=== PATIENT | male | born 1950 | race Caucasian/White ===

== ENCOUNTER 2016-09-13 14:40 | Emergency (ER) | payer OTHER ==
[~2016-09-13] VITALS: Ht 182.9 cm; Wt 81.6 kg
--- NOTE | 2016-09-13 15:14 | ED GENERAL ADULT ---
History of Present Illness General Chief Complaint: General Adult Stated Complaint: JAW PAIN Source: patient, old records Exam Limitations: no limitations Vital Signs & Intake/Output Vital Signs & Intake/Output Vital Signs Date Time Temp Pulse Resp B/P Pulse O2 O2 Flow FiO2 Ox Delivery Rate 09/13 1735 77 176/94 09/13 1642 99.1 87 18 183/90 97 Room Air 09/13 1548 Room Air 09/13 1443 97.7 95 20 190/100 98 Room Air Allergies Coded Allergies: No Known Allergies (09/13/16) Triage Note: PT TO ED C/O HEARTBURN AND JAW PAIN X 1 WEEK. PT WENT TO SEE DR IBRAHIM FOR THE SAME, AND WAS TOLD TO COME TO ED FOR FURTHER EVAL. PT DENIES CHEST PAIN, SOB. DENIES HEARTBURN NOW. DENIES ANY PAIN. Triage Nurses Notes Reviewed? yes Onset: Abrupt Duration: week(s): (1.5), intermittent, resolved prior to arrival Timing: recent history Injury Environment: home Severity: mild Severity Numbers: 3 No Modifying Factors: none Associated Symptoms: denies HPI: 66-year-old male with history of hypertension and high cholesterol sarcoidosis presents emergency room after being sent in by his primary care physician stating that over the past 1-1/2 weeks he's had "heartburn and bilateral jaw sensitivity". Patient states that he's had a history of reflux in the past and states that he has had similar symptoms including the jaw sensitivity. The symptoms have come on intermittently randomly lasting anywhere from a few seconds to a few minutes. He is been taking Prilosec over the past 1 week with only mild improvement. He denies any symptoms at this time and states the last episode was approximate 3 days ago. He states he is very active playing tennis and working out and states that he did 45 minutes of interval training today. He denies any associated chest pain palpitations dizziness lightheadedness shortness of breath. The symptoms have not occurred while he was exerting himself working out. He does not smoke he denies alcohol use. He is never been seen by anatomy and physiology instructor before however he has had endoscopies and colonoscopies before. He denies alcohol use abdominal pain nausea vomiting diarrhea. There are no modifying factors or associated symptoms patient denies any symptoms at this time. He denies any arm or hand tingling numbness or weakness. The patient states that it is not pain in his jaw that it is a "sensitivity" but does not yet worse with opening and closing his jaw no dental pain. (JAMIE BLANCAS) Reconcile Medications Aspirin (Ecotrin*) 81 MG TABLET. 1 TAB PO DAILY HEART/BLOOD (Reported) Simvastatin (Simvastatin*) 20 MG TABLET 1 TAB PO QAM CHOLESTEROL (Reported) Valsartan 160 MG TABLET 1 TAB PO QAM HTN (Reported) (MYA LOZANO DO) Past History Travel History Traveled to [place] past 21 day No Medical History Any Pertinent Medical History? see below for history Cardiovascular: hypertension, hyperlipidemia Respiratory: sarcoidosis Gastrointestinal: GERD Surgical History Surgical History: none Psychosocial History What is your primary language Kyrgyz Tobacco Use: Never used ETOH Use: occasional use Illicit Drug Use: denies illicit drug use Family History Hx Contributory? No (JAMIE BLANCAS) Review of Systems Review of Systems Constitutional: Reports: see HPI. All Other Systems: Reviewed and Negative Comments Review of systems: See HPI, All other systems negative. Constitutional, no chills no fever, no malaise HEENT: no sore throat no congestion, no ear pain Cardiovascular: No chest pain , no palpitation , Skin, no jaundice no rashes, no change in skin Respiratory: No dyspnea no cough no sputum no hemoptysis GI: No nausea no vomiting, no diarrhea, no bloating/constipation : No dysuria No hematuria, no frequency, no discharge Muscle skeletal: No joint pain, no joint swelling, no back pain, no neck pain, Neurologic: no headache Psych: stress no anxiety no depression,. Heme/endocrine: No bruising no bleeding Immunology: No lymphadenopathy (JAMIE BLANCAS) Physical Exam Physical Exam General Appearance: well developed/nourished, no apparent distress, alert, awake , comfortable Comments: Well-developed well-nourished person in no acute distress HEENT: Normal EENT exam; PERRL, EOMI, HEAD is atraumatic. moist mucous membranes. face and tmj b/l nontender, no facial swelling Neck: Supple, no bruit, no lymphadenoapthy normal range of motion Back: Nontender, no CVA tenderness. Full range of motion Cardiovascular: Regular rate and rhythms no murmurs rubs Respiratory: Chest nontender.There were no bony deformities, no asymmetry. No respiratory distress. Patient speaking in full complete sentences. Breath sounds clear to auscultation bilaterally: NO W/R/R Abdomen: Soft, nontender nondistended, no appreciable organomegaly. Normal bowel sounds. No rebound/guarding, Extremity: No edema, full range of motion of extremities Neuro: Alert oriented x3, motor sensory normal,There were no obvious focal neurologic abnormalities. Skin: No appreciable rash on exposed skin, skin is warm and dry. Psych: Mood and affect is normal, memory and judgment is normal. Core Measures ACS in differential dx? Yes CVA/TIA Diagnosis: No Severe Sepsis Present: No Septic Shock Present: No (FANNY LUNA,JAMIE) Progress Differential Diagnoses I considered the following diagnoses in my evaluation of the patient: Muscle strain anxiety, reflux, gastritis, ami pericarditis pancreatitis pulmonary embolism pneumonia sarcoid pneumothorax, tmj Plan of Care: Orders Procedure Date/time Status TROPONIN LEVEL 09/13 1527 Complete LIPASE 09/13 1527 Complete COMPREHENSIVE METABOLIC PANEL 09/13 1527 Complete CBC WITHOUT DIFFERENTIAL 09/13 1527 Complete AMYLASE 09/13 1527 Complete EKG 09/13 1527 Active Laboratory Tests 09/13/16 1605: Anion Gap 11, Estimated GFR > 60, BUN/Creatinine Ratio 26.3 H, Glucose 87, Calcium 9.7, Total Bilirubin 1.6 H, AST 46, ALT 64, Alkaline Phosphatase 78, Troponin I 0.01, Total Protein 7.9, Albumin 4.5, Globulin 3.4, Albumin/Globulin Ratio 1.3, Amylase 52, Lipase 91, CBC w Diff NO MAN DIFF REQ, RBC 4.67 L, MCV 93.8, MCH 32.4 H, RDW 12.6, MPV 7.5, Gran % 62.2, Lymphocytes % 20.9, Monocytes % 16.0 H, Eosinophils % 0.3, Basophils % 0.6, Absolute Granulocytes 3.1, Absolute Lymphocytes 1.0 L, Absolute Monocytes 0.8 H, Absolute Eosinophils 0, Absolute Basophils 0, PUBS MCHC 34.6 Labs ordered old records reviewed patient denies any symptoms at this time, evaluated by Dr. lozano who agrees with plan 09/13/2016 5:34:24 PM discussed the patient and his all his lab results. The patient's last episode of these symptoms occurred 3 or 4 days ago per the patient. He's been asymptomatic here. I discussed with him at length all of his lab results given the duration of his symptoms I discussed with him that I do not believe at this time he would require a repeat troponin which she patient is agreement with. I discussed with him at length all of his lab results. The patient states that his blood pressure is chronically elevated when he goes to the doctor's office and that both his and daughter who are in the medical field 1 as a nurse one is a physician dental assistant have checked his blood pressures at home and that they've been 120s systolic in the past. He denies headache vision changes chest pain. I discussed the need for close follow-up with George Ibrahim MD however information was also provided for follow-up with Dr. Nelson as well as his gastrologist Dr. Cassidy. I answered all his questions he feels comfortable with plan cleared for discharge (JAMIE BLANCAS) Initial ED EKG: nsr at 70, nonspecific st seg changes, normal axis Prior EKG: unchanged (09/2010) (JAMIE BLANCAS) Differential Diagnoses I considered the following diagnoses in my evaluation of the patient: (BLAKE DO,MYA Kovacs) Departure Departure Time of Disposition: 1731 Disposition: HOME OR SELF CARE Condition: Stable Clinical Impression Primary Impression: Jaw pain Secondary Impressions: HTN (hypertension) Referrals: ALEXANDRIA RINCON,MAYELIN (PCP/Family) JHON RINCON,Ian CASSIDY MD,SUHAIL Avila Additional Instructions: Follow-up with anatomy and physiology instructor Dr. Nelson as well as your baler operator Dr. Cassidy and your primary care physician this week bland diet no fatty spicy greasy foods. Continue to check your blood pressures at home, as discussed your blood pressure was elevated today here in the emergency room. Return if these values are persistently elevated at home. Otherwise follow-up with your primary care physician as you may need adjustment in your medication Return to emergency room at anytime sooner if your symptoms become more persistent, constant or you have any other concerns Departure Forms: Customer Survey General Discharge Information (JAMIE BLANCAS) PA/SPEAR FISHER Co-Sign Statement Statement: ED Attending supervision documentation- [X] I saw and evaluated the patient. I have also reviewed all the pertinent lab results and diagnostic results. I agree with the findings and the plan of care as documented in the PA's/SPEAR FISHER's documentation. [] I have reviewed the ED Record and agree with the PA's/SPEAR FISHER's documentation. [] Additions or exceptions (if any) to the PAs/SPEAR FISHER's note and plan are summarized below: [] PATIENT SEEN AND EXAMINED, INTERMITTEMT JAW DISCOMFORT FOR 10 DAYS EKG NO SIGNIFICANT CHANGE FORM 2010. The patient complains of bilateral jaw sensation, no true pain. No nausea vomiting shortness of breath. Physical exam unremarkable. EKG was unchanged. Pain is been going on for 10 days. Troponin was nondetectable. (MYA LOZANO DO) Critical Care Note Critical Care Note Critical Care Time: non-applicable (JAMIE BLANCAS)
[2016-09-13] MEDS ORDERED: ASPIRIN EC81 M1 PO (15:53)
[2016-09-13] MEDS ORDERED: SIMVASTATIN20 M2 PO (15:53)
[2016-09-13] MEDS ORDERED: VALSARTAN160 M1 PO (15:53)
[2016-09-13 16:11] LABS: ABSOLUTE BASOPHIL COUNT 0 /CUMM (0.0-0.2); ABSOLUTE EOSINOPHIL COUNT 0 /CUMM (0.0-0.7); ABSOLUTE GRANULOCYTE CT 3.1 /CUMM (1.4-6.5); ABSOLUTE MONOCYTE COUNT 0.8 /CUMM (0.10-0.60); BASOPHIL % 0.6 % (0.0-2.0); EOSINOPHIL % 0.3 % (0-5); GRANULOCYTE % 62.2 % (42.2-75.2); HEMATOCRIT 43.9 % (42-52); MEAN CORPUSCULAR HGB 32.4 PG (27.0-31.0); MEAN CORPUSCULAR HGB CONC 34.6 G/DL (33.0-37.0); MEAN CORPUSCULAR VOLUME 93.8 FL (80.0-94.0); MEAN PLATELET VOLUME 7.5 FL (7.4-10.4); PLATELET COUNT 193 /CUMM (130-400); RBC DISTRIBUTION WIDTH 12.6 % (11.5-14.5); RED BLOOD CELL CT 4.67 /CUMM (4.70-6.10); WHITE BLOOD CELL COUNT 4.9 /CUMM (4.8-10.8)
[2016-09-13 17:35] VITALS: BP 176/94
== END 2016-09-13 17:41 ==
LOC: ERH 14:40
PROVIDERS: Physician Assistant Medical
DX: R68.84 Jaw pain (principal); I10 Essential (primary) hypertension
CPT/HCPCS: 93005; 93010